=== PATIENT | female | born 1960 | race Caucasian/White ===

== ENCOUNTER 2020-11-23 10:39 | Emergency (ER) | payer OTHER, SELFPAY ==
--- NOTE | 2020-11-23 11:21 | ED.GENADUL_ITS ---
Discharge Plan Disposition Patient Disposition: HOME Condition: Stable Discharge Details Clinical Impression: Closed fracture of radial head, Acute wrist pain, Ankle sprain Primary Care Provider: Unknown,Unknown ED Provider: Marcy Chatman Home Meds and New Rx's Prescriptions: Continued levothyroxine 175 mcg Tablet 175 mcg PO DAILY RF: 0 montelukast [Singulair] 10 mg Tablet 10 mg PO DAILY RF: 0 aspirin 81 mg Tablet 81 mg PO DAILY RF: 0 albuterol 90 mcg/actuation Aerosol 90 mcg INHALATION PRN PRNRF: 0 olmesartan 20 mg Tablet 20 mg PO DAILY RF: 0 Discharge Instructions Instructions: Ankle Sprain (ED), Arm Fracture in Adults (ED) Additional Instructions: You have a fracture of your radial head. You may continue with the sling for the next 3 to 5 days to help with discomfort. However, please come out of the sling to work on range of motion as frequently as possible. I am concerned about your scaphoid bone as we discussed, please continue thumb spica until reevaluated by orthopedics. Exam and imaging of your ankle is most consistent with ankle sprain. Please continue with the lace up ankle brace until reevaluated orthopedics. While of these injuries, please encourage rest, ice, elevation. You may use Tylenol and/or ibuprofen as needed for discomfort. You will need reevaluation by orthopedic in 1 week. Please call your primary care tomorrow to help ensure appropriate referrals and follow-up with me. If you develop any new or worsening symptoms to seek care Stand Alone Forms: Work Release Discharge Data Discharge Date/Time-TO BE ENTERED AT DEPARTURE: 11/23/20 14:37 Medical Decision Making Patient is a pleasant [id number] 60-year-old female presenting today with chief complaint of right arm and left ankle pain. She reports that prior to arrival she was stepping off of her brothers deck when she tripped on some uneven pavement and fell. She does report striking her head. However, she denies any head pain now. No loss of consciousness. Denies any pain with palpation about the scalp. Denies any visual change. No nausea or vomiting. Denies any pain in her neck, chest, abdomen, pelvis. Pain is localized to the right arm as well as the left ankle. She has been able to stand up is very difficult for her to do so. Has not had anything as of yet for her discomfort. Patient denies any numbness or tingling. On exam, patient appears uncomfortable but nontoxic. Vital signs are stable. Exam the left arm is limited as the patient does not really move this much. Pain is maximal over the right humerus, lateral aspect of the elbow and wrist. She does not have pain with palpation directly over the snuffbox but does have pain with axial thumb loading. Sensation is intact, 2+ distal pulses with brisk capillary refill. Denies any neurological deficit on exam. In regard to the left ankle, patient does have swelling of the lateral malleolus. She also has some minimal discomfort of the ATFL. No pain over the Achilles, no pain over the Achilles. No pain of the midfoot or proximal fifth metatarsal. No pain over the proximal fibula. We will place the patient in a sling to help support and offer comfort for the right arm. Will apply ice to the right arm as well as the left ankle. Will obtain x-ray imaging of the areas of discomfort. We will also give Tylenol and ibuprofen to help with discomfort. Reviewed x-rays. Concern for radial head fracture. Also concern for possible navicular fracture or injury based on area of discomfort. Dr. Bonilla. He adv ised valgus radial neck fracture. Advise unlikely scaphoid scaphoid fracture. Advised sling and thumb spica. He encourage early mobility of the elbow. Encourage follow-up in 1 week for reevaluation with orthopedics. Patient does live in [place] and will be returning in 1 week. Discusssed findings and recommendations with the patient. Dx of closed radial neck fx, possible scaphoid fx, ankle sprain. Encouraged RICE. Sling and splint applied to RUE. Will apply lace up ankle splint to left ankle for support. She works as a regional intermodal truck driver, advised no work until reevaluated and cleared at repeat appointment. Return precautions discussed. Encouraged early mobility of the elbow. tylenol and/or Ibuprofen as needed for discomfort. All of her questions and concerns were addressed. She will call PCP Tuesday to help arrange for f/u with ortho upon her return home. She is in agreement with this plan. HPI General Mode of arrival: wheelchair . Date/Time Provider Initiated Documentation: 11/23/20 11:21 . Limitations to Documentation: no limitations . Information obtained by: patient and RN notes reviewed . History of Present Illness 60 year old F presents to the emergency department with the chief complaint of RUE and left ankle pain, described as severe, with intensity rated at 8. Quality is described as aching, and is localized to the left, right, upper extremity and lower extremity. Patient extremity. Patient started experiencing this minute(s) and it has been constant. Immobilization improves symptom(s), Movement worsens symptoms . Patient notes no other symptoms.. Patient did receive the following treatments prior to arrival, none Related Data Home Medications Medication Instructions Recorded Confirmed albuterol 90 mcg INHALATION PRN PRN 11/23/20 11/23/20 aspirin 81 mg PO DAILY 11/23/20 11/23/20 levothyroxine 175 mcg PO DAILY 11/23/20 11/23/20 montelukast [Singulair] 10 mg PO DAILY 11/23/20 11/23/20 olmesartan 20 mg PO DAILY 11/23/20 11/23/20 Allergies Allergy/AdvReac Type Severity Reaction Status Date / Time No Known Allergies Allergy Unverified 11/23/20 11:35 Review of Systems Constitutional Constitutional: Reports as per HPI, Denies chills, Denies fever(s), Denies headache(s) and Denies weakness ENT Ears, Nose, Mouth, and Throat: Denies headache(s) Cardiovascular Cardiovascular: Reports as per HPI Respiratory Respiratory: Reports as per HPI and Denies cough Musculoskeletal Musculoskeletal: Reports as per HPI and Denies tingling Integumentary/Breasts Skin/Breast: Reports as per HPI, Denies rash and Denies wounds Neurologic Neurologic: Reports as per HPI, Denies headache(s), Denies tingling, Denies paresthesias and Denies weakness [facility] Social History Smoking/Tobacco Use Status: Former Tobacco Use Smoking risk assessment performed?: Yes Drug use: Never Substance use type: does not use Do you feel safe at home: Yes Do you feel safe in your relationship?: Yes Exam Const General: cooperative, healthy appearing, uncomfortable, no acute distress, well developed and well groomed Nutritional Appearance: well nourished and obese Orientation: alert and awake [facility] Head: normal to inspection, no palpable skull fracture, normocephalic, atraumatic and no palpable skull fracture Neck Neck: normal visual inspection and full ROM Resp Effort & Inspection: normal respiratory effort, able to speak in complete sentences and no respiratory distress Auscultation: clear to auscultation bilaterally Cardio Rate: regular rate Rhythm: regular rhythm Heart Sounds: S1 normal and S2 normal Back/Spine/Pelvis Cervical Spine: normal cervical lordosis, cervical ROM normal, No cervical muscular tenderness and No cervical spinal tenderness Skin General skin exam: no rashes or lesions noted Lesions: no lesions Rashes: no rashes Trauma: no lacerations or abrasions Neuro General: patient alert and patient awake Cognition: normal cognition Speech: speech normal Motor: muscle tone normal throughout Sensory Exam: no sensory deficits noted Extrem Right upper extremity: normal to inspection, normal capillary refill, no joint enlargement, shoulder/upper arm Details: normal to inspection, tenderness Location: of the mid-shaft humerus and axillary nerve sensory function normal; no swelling, ROM limited (limited ROM of elbow seconedary to pain), no lacerations, no ecchymosis, no crepitus, no deformity and no unusual warmth, elbow/forearm Details: normal to inspection, tenderness (over radial head) and distal pulses intact; no swelling, ROM abnormal (limited secondary to pain), no unusual warmth, no abrasions, no ecchymosis, no crepitus and no deformity and wrist Details: normal to inspection and tenderness Location: of the distal radius; not of the anatomic snuffbox (no pain over this); ROM limited Ankle/foot/toe images: 1. Area of swelling and discomfort. Pain over lateral malleolus and ATFL. No palapable deformity. No discoloration. 2+ distal pulses. Sensation intact. No pain in the foot, no pain over calcaneus, proximal 5th metatarsal, midfoot. Achilles is intact and nontender. No pain over proximal fibula. Sensation intact. Psych Appearance: grossly normal and well kempt Mental Status: mental status grossly normal Speech and Movement: speech and movement normal
[2020-11-23 11:27] VITALS: BP 138/48; PULSE 74; RESP 17; TEMP 36.7; O2SAT 98
--- NOTE | 2020-11-23 11:45 | DI.RAD_ITS ---
Exam(s) XR ANKLE LT COMPLETE EXAM: XR ANKLE LT COMPLETE CLINICAL HISTORY: lateral pain after rotational injury TECHNIQUE: COMPARISON: No exams were available for comparison FINDINGS: Three views were obtained. The ankle mortise appears well maintained. There is marked soft tissue s welling adjacent to the lateral malleolus. There is no evidence of acute fracture. IMPRESSION: RADIATION DOSE DELIVERED: Total DLP
--- NOTE | 2020-11-23 11:51 | DI.RAD_ITS ---
Exam(s) XR WRIST RT COMPL NAVICULAR EXAM: XR WRIST RT COMPL NAVICULAR CLINICAL HISTORY: FOOSH TECHNIQUE: COMPARISON: No exams were available for comparison FINDINGS: Four views were obtained. There is deformity of the navicular waist suspicious for acute mildly disp laced fracture. Radial styloid also shows minimal deformity, probably chronic. No additional signif icant findings. IMPRESSION: Suspect navicular waist fracture, probably acute. Correlation with CT suggested. RADIATION DOSE DELIVERED: Total DLP
--- NOTE | 2020-11-23 11:51 | DI.RAD_ITS ---
Exam(s) XR ELBOW RT COMPLETE EXAM: XR ELBOW RT COMPLETE CLINICAL HISTORY: FOOSH TECHNIQUE: COMPARISON: No exams were available for comparison FINDINGS: Four views were obtained. There is a joint effusion of the elbow. There is an impacted mildly displ aced fracture of the radial neck. No additional fracture seen on this limited series. IMPRESSION: RADIATION DOSE DELIVERED: Total DLP
--- NOTE | 2020-11-23 11:51 | DI.RAD_ITS ---
Exam(s) XR HUMERUS RT EXAM: XR HUMERUS RT CLINICAL HISTORY: FOOSH TECHNIQUE: COMPARISON: No exams were available for comparison FINDINGS: Three views were obtained. Previous described radial neck fracture again noted. No humeral fracture seen. IMPRESSION: RADIATION DOSE DELIVERED: Total DLP
[2020-11-23] MEDS: Acetaminophen 325 MG TAB 650 MG PO (11:57)
[2020-11-23] MEDS: Ibuprofen 600 MG TAB PO (11:57)
--- NOTE | 2020-11-23 14:44 | DI.VRAD_ITS ---
PROCEDURE INFORMATION: Exam: XR Right Wrist Exam date and time: 11/23/2020 12:42 PM Age: 60 years old Clinical indication: Injury or trauma; Fall; Blunt trauma (contusions or hematomas); Wrist; Right TECHNIQUE: Imaging protocol: XR Right wrist. Views: 3 or more views. COMPARISON: No relevant prior studies available. FINDINGS: Bones/joints: Contour deformity and lucency waist of the scaphoid suspicious for nondisplaced fracture. Correlate with physical exam. No other fractures identified. No dislocation. Soft tissues: Normal. IMPRESSION: Contour deformity and lucency waist of the scaphoid suspicious for nondisplaced fracture. Correlate with physical exam. Dictated and Authenticated by: Red Mancilla MD. Ordering:ABEL Vidal MD
--- NOTE | 2020-11-23 14:48 | DI.VRAD_ITS ---
PROCEDURE INFORMATION: Exam: XR Left Ankle Exam date and time: 11/23/2020 11:53 AM Age: 60 years old Clinical indication: Injury or trauma; Fall; Blunt trauma; Ankle; Left TECHNIQUE: Imaging protocol: XR Left ankle. Views: 3 or more views. COMPARISON: No relevant prior studies available. FINDINGS: Bones/joints: Plantar calcaneal spur. No acute fracture. No acute malalignment. Soft tissues: Lateral soft tissue swelling. IMPRESSION: No acute bony abnormality. Dictated and Authenticated by: Red Mancilla MD. Ordering:ABEL Vidal MD
--- NOTE | 2020-11-23 14:50 | DI.VRAD_ITS ---
PROCEDURE INFORMATION: Exam: XR Right Humerus Exam date and time: 11/23/2020 12:43 PM Age: 60 years old Clinical indication: Injury or trauma; Fall; Blunt trauma (contusions or hematomas); Arm, upper; Right TECHNIQUE: Imaging protocol: XR Right humerus. Views: 2 or more views. COMPARISON: CR XR ELBOW RT COMPLETE 11/23/2020 12:55 PM FINDINGS: Bones/joints: Fracture radial neck. No other fractures identified. No dislocation. Soft tissues: Normal. IMPRESSION: Fracture radial neck. Dictated and Authenticated by: Red Mancilla MD. Ordering:ABEL Vidal MD
--- NOTE | 2020-11-23 14:52 | DI.VRAD_ITS ---
PROCEDURE INFORMATION: Exam: XR Right Elbow Exam date and time: 11/23/2020 12:41 PM Age: 60 years old Clinical indication: Injury or trauma; Fall; Bleeding/hemorrhage; Elbow; Right TECHNIQUE: Imaging protocol: XR Right elbow. Views: 3 or more views. COMPARISON: CR XR WRIST RT COMPL NAVICULAR 11/23/2020 12:49 PM FINDINGS: Bones/joints: Mildly impacted fracture radial neck. No other fractures identified. No dislocation. Joint effusion at the elbow. Soft tissues: Normal. IMPRESSION: Mildly impacted fracture radial neck. Dictated and Authenticated by: Red Mancilla MD. Ordering:ABEL Vidal MD
== END 2020-11-23 14:37 | disposition home or self-care (01) ==
PROVIDERS: Emergency Provider Physician Assistant
DX: S52.121A Displaced fracture of head of right radius, initial encounter for closed fracture (principal); M25.531 Pain in right wrist; S93.492A Sprain of other ligament of left ankle, initial encounter; W01.0XXA Fall on same level from slipping, tripping and stumbling without subsequent striking against object, initial encounter
CPT/HCPCS: 29125; 29515; 99284; 73060; 73080; 73110; 73610